=== PATIENT | female | born 1995 | race Caucasian/White ===

== ENCOUNTER 2016-07-02 15:50 | Emergency (ER) | payer MEDICAID | END 2016-07-02 19:36 | disposition home or self-care (01) | LOC: ER 15:50 | DX: O23.11 Infections of bladder in pregnancy, first trimester (principal); O34.81 Maternal care for other abnormalities of pelvic organs, first trimester; N83.11 Corpus luteum cyst of right ovary; Z3A.01 Less than 8 weeks gestation of pregnancy | CPT/HCPCS: 36415; 76817; 80053; 81001; 83690; 84702; 84703; 85025; 87088 ==